=== PATIENT | female | born 1995 | race Native Hawaiian/Other Pacific Islander ===

== ENCOUNTER 2022-12-21 07:05 | Emergency (ER) | payer MEDICAID ==
[~2022-12-21] VITALS: Ht 165.1 cm; Wt 107.0 kg
[2022-12-21 07:10] VITALS: BP 124/80
--- NOTE | 2022-12-21 07:20 | NUR ---
Patient taken to bed 11.
[2022-12-21] MEDS: ONDANSETRON 4 MG ODT PO ONE (07:50)
[2022-12-21] MEDS: KETOROLAC 60 MG/2 ML VIAL IM ONE (07:51)
--- NOTE | 2022-12-21 07:51 | NUR ---
ORDERS NOTED. MEDICATED PER ORDER. PT PENDING DIAGNOSTIC STUDIES.
[2022-12-21 08:39] LABS: BASOPHILS % (AUTO) 0.2 % (0.0-2.0); EOSINOPHILS % (AUTO) 0.4 % (0.0-4.0); HEMATOCRIT 43.3 % (36-48); HEMOGLOBIN 14.8 g/dL (12.0-16.0); LYMPHOCYTES # (AUTO) 1.2 K/uL (2.5-16.5); LYMPHOCYTES % (AUTO) 13.8 % (20.5-51.1); MEAN CORPUSCULAR HEMOGLOBIN 31 pg (27-31); MEAN CORPUSCULAR HGB CONC 34 g/dL (33-37); MEAN CORPUSCULAR VOLUME 90.7 fL (80-94); MONOCYTES # (AUTO) 0.3 K/uL (0.8-1.0); MONOCYTES % (AUTO) 3.4 % (1.7-9.3); NEUTROPHILS # (AUTO) 6.8 K/uL (1.8-7.7); NEUTROPHILS % (AUTO) 82.2 % (42.2-75.2); PLATELET COUNT (AUTO) 198 K/uL (140-450); RED BLOOD CELL COUNT(AUTO) 4.77 MIL/uL (4.20-5.40); RED CELL DISTRIBUTION WIDTH 13.2 % (11.6-13.7); WHITE BLOOD COUNT (AUTO) 8.3 K/uL (4.8-10.8)
[2022-12-21 08:48] LABS: ALBUMIN 3.6 g/dL (3.4-5.0); CARBON DIOXIDE 24.8 mmol/L (21-32); CREATININE 0.7 mg/dL (0.6-1.3); POTASSIUM 3.8 mmol/L (3.5-5.1); TOTAL BILIRUBIN 0.5 mg/dL (0.0-1.0)
[2022-12-21] MEDS ORDERED: NAPR-1704 PO (09:26)
[2022-12-21] MEDS ORDERED: TRAM-748 PO (09:26)
[2022-12-21 09:52] VITALS: BP 120/70
== END 2022-12-21 09:52 | disposition home or self-care (01) ==
LOC: MED 07:05
DX: K80.50 Calculus of bile duct without cholangitis or cholecystitis without obstruction (principal); Z79.1 Long term (current) use of non-steroidal anti-inflammatories (NSAID); Z79.891 Long term (current) use of opiate analgesic
CPT/HCPCS: 36415; 80053; 81025; 82150; 83690; 84703; 85025; 96372; 99284; J1885; Q0162